=== PATIENT | male | born 1950 | race Caucasian/White ===

== ENCOUNTER 2016-11-19 23:35 | Inpatient (IN) | payer MEDICARE, MEDICAID ==
[~2016-11-19] VITALS: Ht 177.8 cm; Wt 64.1 kg
[2016-11-19] MEDS ORDERED: SODIUM CHLORIDE 0.9% 1,000 ML IV ONE (23:47)
[2016-11-19] MEDS ORDERED: methylPREDNISolone SOD SUCC 125 MG/2 ML ONE (23:55)
[2016-11-19] MEDS ORDERED: ALBUTEROL/IPRATROPIUM 2.5MG/0.5MG, 3 ML ONE (23:57)
[2016-11-20] MEDS ORDERED: ALBUTEROL/IPRATROPIUM 2.5MG/0.5MG, 3 ML NPPB ONE
[2016-11-20] MEDS ORDERED: methylPREDNISolone SOD SUCC 125 MG/2 ML IVP ONE
[2016-11-20] MEDS ORDERED: SODIUM CHLORIDE FLUSH 10ML SYR IVF ONE
[2016-11-20 00:39] LABS: ASPARTATE AMINO TRANSFERASE 19 U/L (15-37); BLOOD UREA NITROGEN 16 mg/dL (7-18)
[2016-11-20 00:45] LABS: ABG COLLECTION SITE RIGHT BRACHIAL
[2016-11-20 00:45] LABS: IS PT STATUS REG ER OR PRE ER? YES
[2016-11-20 01:29] LABS: PATH.CAST-FLAG NOT PRESENT; SPERM-FLAG NOT PRESENT; SRC-FLAG NOT PRESENT; XTAL-FLAG NOT PRESENT; YLC-FLAG NOT PRESENT
[2016-11-20] MEDS ORDERED: BISACODYL 10 MG SUPP PR PRN (01:30)
[2016-11-20] MEDS ORDERED: ACETAMINOPHEN 325 MG TABLET PO PRN (01:30)
[2016-11-20] MEDS ORDERED: ONDANSETRON ODT 4 MG PO PRN (01:30)
[2016-11-20] MEDS ORDERED: ENALAPRILAT 1.25 MG/ML, 2ML IVPush PRN (01:30)
[2016-11-20] MEDS ORDERED: POLYETHYLENE GLYCOL 17 GM PACKET PO PRN (01:30)
[2016-11-20] MEDS ORDERED: DOCUSATE 100 MG CAPSULE PO PRN (01:30)
[2016-11-20] MEDS ORDERED: TRAZODONE 50MG TABLET PO PRN (01:30)
[2016-11-20 03:46] VITALS: BP 102/65
[2016-11-20] MEDS: SODIUM CHLORIDE 0.9% 1,000 ML IV SCH ×3 (04:01→23:46)
[2016-11-20] MEDS: ENOXAPARIN 40 MG/0.4 ML SQ SCH (04:05)
[2016-11-20] MEDS: NICOTINE 14MG/24 HR PATCH.TD24 TD SCH (04:06)
[2016-11-20] MEDS ORDERED: ALBUTEROL/IPRATROPIUM 2.5MG/0.5MG, 3 ML NPPB PRN (04:30)
[2016-11-20] MEDS: ALBUTEROL/IPRATROPIUM 2.5MG/0.5MG, 3 ML NPPB SCH ×4 (07:20→20:03)
[2016-11-20 07:55] VITALS: BP 111/68
[2016-11-20] MEDS: AZITHROMYCIN 500 MG TABLET PO SCH (09:09)
[2016-11-20 12:24] VITALS: BP 109/63
[2016-11-20] MEDS: methylPREDNISolone SOD SUCC 125 MG/2 ML IVPush SCH ×2 (14:38→21:23)
[2016-11-20 19:26] VITALS: BP 115/55
[2016-11-21 01:33] VITALS: BP 103/54
[2016-11-21] MEDS: NICOTINE 14MG/24 HR PATCH.TD24 TD SCH (03:55)
[2016-11-21] MEDS: ENOXAPARIN 40 MG/0.4 ML SQ SCH (03:55)
[2016-11-21] MEDS: methylPREDNISolone SOD SUCC 125 MG/2 ML IVPush SCH (06:10)
[2016-11-21] MEDS: ALBUTEROL/IPRATROPIUM 2.5MG/0.5MG, 3 ML NPPB SCH (07:07)
[2016-11-21 07:40] VITALS: BP 92/46
[2016-11-21] MEDS: AZITHROMYCIN 500 MG TABLET PO SCH (08:07)
== END 2016-11-21 09:17 | disposition left against medical advice (07) | DRG 189 ==
LOC: ED 23:53 → EDIP 11-20 00:55 → 4NOR 11-20 03:30
PROVIDERS: ADMIT Internal Medicine; ATTEND Internal Medicine
DX: J96.01 Acute respiratory failure with hypoxia (principal); J44.1 Chronic obstructive pulmonary disease with (acute) exacerbation; D64.9 Anemia, unspecified; B86 Scabies; F17.210 Nicotine dependence, cigarettes, uncomplicated; G40.909 Epilepsy, unspecified, not intractable, without status epilepticus; G89.29 Other chronic pain; M54.9 Dorsalgia, unspecified; Z71.6 Tobacco abuse counseling; Z85.71 Personal history of Hodgkin lymphoma; Z88.8 Allergy status to other drugs, medicaments and biological substances
CPT/HCPCS: 36415; 36600; 71010; 80053; 81001; 82803; 83605; 83880; 84484; 85025; 87040; 93005; 94640; 96361; 96374; J1650; J7620; J2930; J7030; J7512

== ENCOUNTER 2019-03-08 22:31 | Emergency (ER) | payer MEDICARE, MEDICAID ==
[~2019-03-08] VITALS: Ht 177.8 cm; Wt 61.6 kg
[2019-03-08 22:35] VITALS: BP 110/60
== END 2019-03-09 00:06 | disposition home or self-care (01) ==
LOC: ED 23:00
DX: H00.015 Hordeolum externum left lower eyelid (principal); G40.909 Epilepsy, unspecified, not intractable, without status epilepticus; J44.9 Chronic obstructive pulmonary disease, unspecified; F17.200 Nicotine dependence, unspecified, uncomplicated
CPT/HCPCS: 99283

== ENCOUNTER 2019-07-18 03:14 | Emergency (ER) | payer MEDICARE, MEDICAID ==
[~2019-07-18] VITALS: Ht 177.8 cm; Wt 66.5 kg
[2019-07-18] MEDS ORDERED: ONDANSETRON ODT 4 MG ONE (03:38)
[2019-07-18] MEDS ORDERED: ACETAMINOPHEN 500 MG TABLET ONE (03:39)
[2019-07-18] MEDS ORDERED: ONDANSETRON ODT 4 MG PO ONE (04:00)
[2019-07-18] MEDS ORDERED: ACETAMINOPHEN 500 MG TABLET PO ONE (04:00)
[2019-07-18 04:32] LABS: RAPID INFLUENZA A Negative (Negative); RAPID INFLUENZA B Negative (Negative)
[2019-07-18 05:20] VITALS: BP 118/54
== END 2019-07-18 05:29 | disposition home or self-care (01) ==
LOC: ED 05:11
DX: R11.2 Nausea with vomiting, unspecified (principal); B34.9 Viral infection, unspecified; J44.9 Chronic obstructive pulmonary disease, unspecified; F17.200 Nicotine dependence, unspecified, uncomplicated
CPT/HCPCS: 71045; 87400; 99284; Q0162

== ENCOUNTER 2019-08-03 21:52 | Emergency (ER) | payer MEDICARE, MEDICAID ==
[~2019-08-03] VITALS: Ht 177.8 cm; Wt 68.1 kg
--- NOTE | 2019-08-04 | NUR ---
pt back to room from lobby
--- NOTE | 2019-08-04 00:20 | NUR ---
PT C/O WORSENING SKIN WOUNDS THAT HE HAS AD FOR 8 YEARS. PT DENIES ANY OTHER C/O AT THIS TIME. PT HAS GENERALIZED SKIN WOUNDS, NO BLEEDING. MONITORING APPLIED
[2019-08-04 00:29] LABS: BASOPHILS # (AUTO) 0.06 x10^3/uL (0-0.1); BASOPHILS % (AUTO) 1 % (0-1); EOSINOPHILS # (AUTO) 0.38 x10^3/uL (0-0.4); EOSINOPHILS % (AUTO) 4 % (1-7); LYMPHOCYTES # (AUTO) 2.12 x10^3/uL (1-3.4); LYMPHOCYTES % (AUTO) 23 % (22-44); MD NO; MEAN CORPUSCULAR HEMOGLOBIN 29.5 pg (27.5-34.5); MEAN CORPUSCULAR VOLUME 92.4 fL (81-97); MEAN PLATELET VOLUME 7.9 fL (7.4-10.4); MONOCYTES # (AUTO) 0.77 x10^3/uL (0.2-0.8); MONOCYTES % (AUTO) 8 % (2-9); NEUTROPHILS # (AUTO) 6.08 x10^3/uL (1.8-6.8); NEUTROPHILS % (AUTO) 65 % (42-75); PLATELET COUNT 300 x10^3/uL (130-400); RED BLOOD COUNT 3.94 x10^6/uL (4.38-5.82); RED CELL DISTRIBUTION WIDTH 15.3 % (9.4-14.8)
[2019-08-04 00:36] LABS: ALANINE AMINOTRANSFERASE 19 U/L (12-78); ALBUMIN 3.2 g/dL (3.4-5.0); ANION GAP 2 mmol/L (5-15); CALCIUM 8.9 mg/dL (8.5-10.1); CHLORIDE 110 mmol/L (98-107); CREATININE 1.04 mg/dL (0.7-1.3)
[2019-08-04 00:38] LABS: ALKALINE PHOSPHATASE 98 U/L (45-117); BILIRUBIN,TOTAL 0.2 mg/dL (0.2-1.0); TOTAL PROTEIN 7.3 g/dL (6.4-8.2)
[2019-08-04] MEDS ORDERED: ACETAMINOPHEN 325 MG TABLET ONE (00:57)
[2019-08-04] MEDS ORDERED: NEOSPORIN OINT. PKT 1 PACKET ONE (00:58)
[2019-08-04] MEDS ORDERED: ACETAMINOPHEN 325 MG TABLET PO ONE (01:00)
[2019-08-04] MEDS ORDERED: BACITRACIN ZINC OINT 500U/GM, 0.9 GM TP ONE (01:00)
[2019-08-04 01:27] VITALS: BP 140/73
== END 2019-08-04 02:29 | disposition home or self-care (01) ==
LOC: ED 08-04 01:29
DX: L50.9 Urticaria, unspecified (principal); L20.9 Atopic dermatitis, unspecified; J44.0 Chronic obstructive pulmonary disease with (acute) lower respiratory infection; F17.200 Nicotine dependence, unspecified, uncomplicated; G40.909 Epilepsy, unspecified, not intractable, without status epilepticus
CPT/HCPCS: 36415; 80053; 85025; 99284

== ENCOUNTER 2019-08-17 23:23 | Emergency (ER) | payer MEDICARE ==
[~2019-08-17] VITALS: Ht 177.8 cm; Wt 65.5 kg
--- NOTE | 2019-08-17 23:57 | NUR ---
FIRST CONTACT WITH PT. INITIALLY, PT RELUCTANT TO PARTICIPATE IN CARE- REFUSING TO SPEAK TO RN OR FOLLOW COMMANDS. PT MADE AWARE THAT PARTICIPATION IS REQUIRED TO PROVIDE MEDICAL ASSISTANCE. PT THEN REPORTS "MY LEGS HURT SO BAD. THEY HURT TOO BAD TO WALK ON ANY MORE". PT PRESENTS TO ED W SUPERFICIAL SORES OVER BLE IN VARIOUS STAGES OF HEALING. MARY BANDAGES REMOVED, PT STATES PLACED IN [facility] ED "ABOUT TEN DAYS AGO". DISTAL CAP REFILL <3S. TOES PINK. PT IS A POOR HISTORIAN; UNKNOWN HX OF DM OR MRSA OR RECENT ABX. BP/SPO2/ECG MONITORING IN PLACE. NSR ON MONITOR. RESPIRATIONS EVEN/UNLABORED. SPO2 >90% ON RA.
[2019-08-18 00:41] LABS: BASOPHILS # (AUTO) 0.03 x10^3/uL (0-0.1); BASOPHILS % (AUTO) 0 % (0-1); EOSINOPHILS # (AUTO) 0.39 x10^3/uL (0-0.4); EOSINOPHILS % (AUTO) 4 % (1-7); LYMPHOCYTES # (AUTO) 1.38 x10^3/uL (1-3.4); LYMPHOCYTES % (AUTO) 15 % (22-44); MD NO; MEAN CORPUSCULAR HEMOGLOBIN 29.6 pg (27.5-34.5); MEAN CORPUSCULAR HGB CONC 32.1 g/dL (33.2-36.2); MEAN CORPUSCULAR VOLUME 92.2 fL (81-97); MEAN PLATELET VOLUME 8.2 fL (7.4-10.4); MONOCYTES # (AUTO) 0.78 x10^3/uL (0.2-0.8); MONOCYTES % (AUTO) 9 % (2-9); NEUTROPHILS # (AUTO) 6.53 x10^3/uL (1.8-6.8); NEUTROPHILS % (AUTO) 72 % (42-75); PLATELET COUNT 281 x10^3/uL (130-400); RED BLOOD COUNT 3.78 x10^6/uL (4.38-5.82); RED CELL DISTRIBUTION WIDTH 14.8 % (9.4-14.8)
[2019-08-18 00:53] LABS: ALANINE AMINOTRANSFERASE 15 U/L (12-78); ALBUMIN 2.9 g/dL (3.4-5.0); ANION GAP 3 mmol/L (5-15); CALCIUM 8.3 mg/dL (8.5-10.1); CHLORIDE 110 mmol/L (98-107); CREATININE 1.31 mg/dL (0.7-1.3)
[2019-08-18 00:57] LABS: ALKALINE PHOSPHATASE 98 U/L (45-117); BILIRUBIN,TOTAL 0.2 mg/dL (0.2-1.0); TOTAL PROTEIN 7.1 g/dL (6.4-8.2); TROPONIN I < 0.015 ng/mL (0.000-0.045)
[2019-08-18 01:55] VITALS: BP 124/59
--- NOTE | 2019-08-18 02:11 | NUR ---
DC EDUCATION PROVIDED, PT DEMONSTRATES UNDERSTANDING. PT AMBULATED STEADILY TO DC WITH TECH. TAXI VOUCHER PROVIDED FOR SAFE TRANSPORT.
== END 2019-08-18 02:14 | disposition home or self-care (01) ==
LOC: ED 08-18 01:01
DX: M79.662 Pain in left lower leg (principal); M79.661 Pain in right lower leg; L98.8 Other specified disorders of the skin and subcutaneous tissue; R05 Cough; J44.9 Chronic obstructive pulmonary disease, unspecified; F17.200 Nicotine dependence, unspecified, uncomplicated; Z59.0 Homelessness
CPT/HCPCS: 36415; 71045; 80053; 83880; 84484; 85025; 93005; 99284

== ENCOUNTER 2019-08-29 17:05 | Emergency (ER) | payer MEDICARE, MEDICAID ==
[~2019-08-29] VITALS: Ht 177.8 cm; Wt 65.5 kg
[2019-08-29 17:30] VITALS: BP 109/62
[2019-08-29] MEDS ORDERED: ONDANSETRON ODT 4 MG ONE (18:52)
[2019-08-29] MEDS ORDERED: ACETAMINOPHEN 500 MG TABLET ONE (18:53)
[2019-08-29 18:59] LABS: BASOPHILS # (AUTO) 0.04 x10^3/uL (0-0.1); BASOPHILS % (AUTO) 1 % (0-1); EOSINOPHILS # (AUTO) 0.19 x10^3/uL (0-0.4); EOSINOPHILS % (AUTO) 2 % (1-7); LYMPHOCYTES # (AUTO) 1.36 x10^3/uL (1-3.4); LYMPHOCYTES % (AUTO) 17 % (22-44); MD NO; MEAN CORPUSCULAR HEMOGLOBIN 29.1 pg (27.5-34.5); MEAN CORPUSCULAR HGB CONC 32.1 g/dL (33.2-36.2); MEAN CORPUSCULAR VOLUME 90.7 fL (81-97); MEAN PLATELET VOLUME 8.2 fL (7.4-10.4); MONOCYTES # (AUTO) 0.67 x10^3/uL (0.2-0.8); MONOCYTES % (AUTO) 8 % (2-9); NEUTROPHILS # (AUTO) 5.74 x10^3/uL (1.8-6.8); NEUTROPHILS % (AUTO) 72 % (42-75); PLATELET COUNT 350 x10^3/uL (130-400); RED BLOOD COUNT 3.52 x10^6/uL (4.38-5.82); RED CELL DISTRIBUTION WIDTH 14.2 % (9.4-14.8)
[2019-08-29] MEDS ORDERED: ACETAMINOPHEN 500 MG TABLET PO ONE (19:00)
[2019-08-29] MEDS ORDERED: ONDANSETRON ODT 4 MG PO ONE (19:00)
[2019-08-29 19:04] LABS: ALANINE AMINOTRANSFERASE 29 U/L (12-78); ALBUMIN 2.4 g/dL (3.4-5.0); ANION GAP 4 mmol/L (5-15); CALCIUM 8.2 mg/dL (8.5-10.1); CHLORIDE 108 mmol/L (98-107); CREATININE 1.16 mg/dL (0.7-1.3)
[2019-08-29 19:06] LABS: ALKALINE PHOSPHATASE 64 U/L (45-117); BILIRUBIN,TOTAL 0.2 mg/dL (0.2-1.0); TOTAL PROTEIN 7.3 g/dL (6.4-8.2)
[2019-08-29 19:31] LABS: CULTURE INDICATED? NO; MICROSCOPIC AUTO
--- NOTE | 2019-08-29 20:13 | NUR ---
Patient/Caregiver given discharge instructions and they have confirmed that they understand the instructions. Patient ambulatory with steady gait.
== END 2019-08-29 20:15 | disposition home or self-care (01) ==
LOC: ED 20:09
DX: R11.2 Nausea with vomiting, unspecified (principal); R51 Headache; R10.13 Epigastric pain; R05 Cough; J44.9 Chronic obstructive pulmonary disease, unspecified; G40.909 Epilepsy, unspecified, not intractable, without status epilepticus; F17.210 Nicotine dependence, cigarettes, uncomplicated; Z88.8 Allergy status to other drugs, medicaments and biological substances
CPT/HCPCS: 36415; 80053; 80307; 81001; 83690; 85025; 99283; Q0162

== ENCOUNTER 2019-08-30 22:31 | Emergency (ER) | payer MEDICARE, MEDICAID ==
[~2019-08-30] VITALS: Ht 177.8 cm; Wt 62.6 kg
[2019-08-31] MEDS ORDERED: AZITHROMYCIN 250 MG TABLET ONE (00:24)
[2019-08-31 00:29] VITALS: BP 127/64
[2019-08-31] MEDS ORDERED: AZITHROMYCIN 500 MG TABLET PO ONE (00:30)
--- NOTE | 2019-08-31 00:30 | NUR ---
Discharge instructions given. All questions and concerns addressed. Patient ambulatory with a steady gait. Belongings with patient.
== END 2019-08-31 00:42 | disposition home or self-care (01) ==
LOC: ED 23:26
DX: J15.9 Unspecified bacterial pneumonia (principal); J44.9 Chronic obstructive pulmonary disease, unspecified; G40.909 Epilepsy, unspecified, not intractable, without status epilepticus; F17.210 Nicotine dependence, cigarettes, uncomplicated
CPT/HCPCS: 71045; 99283

== ENCOUNTER 2019-10-06 21:36 | Emergency (ER) | payer MEDICARE, MEDICAID ==
[~2019-10-06] VITALS: Ht 177.8 cm; Wt 65.8 kg
[2019-10-06] MEDS ORDERED: METHOCARBAMOL 750 MG TABLET ONE (23:17)
[2019-10-06] MEDS ORDERED: IBUPROFEN 800 MG TABLET ONE (23:17)
[2019-10-06 23:22] VITALS: BP 115/60
[2019-10-06] MEDS ORDERED: METHOCARBAMOL 750 MG TABLET PO ONE (23:30)
[2019-10-06] MEDS ORDERED: IBUPROFEN 800 MG TABLET PO ONE (23:30)
== END 2019-10-07 00:18 | disposition home or self-care (01) ==
LOC: ED 22:36
DX: S29.012A Strain of muscle and tendon of back wall of thorax, initial encounter (principal); J44.9 Chronic obstructive pulmonary disease, unspecified; X58.XXXA Exposure to other specified factors, initial encounter; Y93.89 Activity, other specified; Y92.89 Other specified places as the place of occurrence of the external cause; Y99.8 Other external cause status
CPT/HCPCS: 93005; 99283

== ENCOUNTER 2019-10-13 16:23 | Emergency (ER) | payer MEDICARE, MEDICAID ==
[~2019-10-13] VITALS: Ht 177.8 cm; Wt 64.5 kg
--- NOTE | 2019-10-13 16:52 | NUR ---
PT TO RM AT THIS TIME. PT WITH C/O DIFFICULTY BREATHING STARTING THIS AM. PT WITH NON PRODUCTIVE COUGH BEGINNNING THIS AM WELL. AFEBRIL, DENIES CP AT THIS TIME. PT TO BP, CARD MONITOR, CONT PULSE OX.
[2019-10-13 17:27] VITALS: BP 102/61
[2019-10-13 17:28] LABS: ALBUMIN 3.6 g/dL (3.4-5.0); ANION GAP 4 mmol/L (5-15); CALCIUM 9.3 mg/dL (8.5-10.1); CHLORIDE 106 mmol/L (98-107); CREATININE 1.39 mg/dL (0.7-1.3)
[2019-10-13 17:31] LABS: TROPONIN I < 0.015 ng/mL (0.000-0.045)
--- NOTE | 2019-10-13 17:40 | NUR ---
PT MEDICATED PER MAR, VSS, RR NOW 36, APPEARS LESS LABORED
[2019-10-13 18:28] LABS: BASOPHILS # (AUTO) 0.02 x10^3/uL (0-0.1); BASOPHILS % (AUTO) 0 % (0-1); EOSINOPHILS # (AUTO) 0.24 x10^3/uL (0-0.4); EOSINOPHILS % (AUTO) 3 % (1-7); LYMPHOCYTES # (AUTO) 1.18 x10^3/uL (1-3.4); LYMPHOCYTES % (AUTO) 16 % (22-44); MD SCAN; MEAN CORPUSCULAR HEMOGLOBIN 29.2 pg (27.5-34.5); MEAN CORPUSCULAR HGB CONC 32.5 g/dL (33.2-36.2); MEAN CORPUSCULAR VOLUME 89.7 fL (81-97); MEAN PLATELET VOLUME 8.8 fL (7.4-10.4); MONOCYTES # (AUTO) 0.31 x10^3/uL (0.2-0.8); MONOCYTES % (AUTO) 4 % (2-9); NEUTROPHILS # (AUTO) 5.67 x10^3/uL (1.8-6.8); NEUTROPHILS % (AUTO) 76 % (42-75); PLATELET COUNT 237 x10^3/uL (130-400); RED BLOOD COUNT 4.86 x10^6/uL (4.38-5.82); RED CELL DISTRIBUTION WIDTH 16.4 % (9.4-14.8)
== END 2019-10-13 18:42 | disposition home or self-care (01) ==
LOC: ED 17:03
DX: J43.9 Emphysema, unspecified (principal); G40.909 Epilepsy, unspecified, not intractable, without status epilepticus; F17.200 Nicotine dependence, unspecified, uncomplicated
CPT/HCPCS: 36415; 71045; 80048; 82040; 84484; 85025; 93005; 99285; J7512

== ENCOUNTER 2020-01-20 09:02 | Emergency (ER) | payer MEDICARE, MEDICAID ==
[~2020-01-20] VITALS: Ht 175.3 cm; Wt 52.1 kg
--- NOTE | 2020-01-20 09:32 | NUR ---
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
--- NOTE | 2020-01-20 10:04 | NUR ---
PT PLACED ON ALL ROOM MONITORING. PT R/O 07/31 IHSAN CP AT THIS TIME, NO SOB. PT IN NAD, CALL LIGHT WITHIN REACH, WARM BLANKET PROVIDED.
--- NOTE | 2020-01-20 10:25 | NUR ---
PT AMBULATORY TO RADIOLOGY.
[2020-01-20 10:28] LABS: BASOPHILS # (AUTO) 0.02 x10^3/uL (0-0.1); BASOPHILS % (AUTO) 0 % (0-1); EOSINOPHILS # (AUTO) 0.18 x10^3/uL (0-0.4); EOSINOPHILS % (AUTO) 4 % (1-7); LYMPHOCYTES # (AUTO) 1.03 x10^3/uL (1-3.4); LYMPHOCYTES % (AUTO) 21 % (22-44); MD NO; MEAN CORPUSCULAR HEMOGLOBIN 29.8 pg (27.5-34.5); MEAN CORPUSCULAR VOLUME 90.3 fL (81-97); MEAN PLATELET VOLUME 9.2 fL (7.4-10.4); MONOCYTES # (AUTO) 0.57 x10^3/uL (0.2-0.8); MONOCYTES % (AUTO) 12 % (2-9); NEUTROPHILS # (AUTO) 3.14 x10^3/uL (1.8-6.8); NEUTROPHILS % (AUTO) 64 % (42-75); PLATELET COUNT 209 x10^3/uL (130-400); RED BLOOD COUNT 4.33 x10^6/uL (4.38-5.82); RED CELL DISTRIBUTION WIDTH 14.3 % (9.4-14.8)
[2020-01-20 10:38] LABS: ALANINE AMINOTRANSFERASE 21 U/L (12-78); ALBUMIN 3.2 g/dL (3.4-5.0); ANION GAP 2 mmol/L (5-15); CALCIUM 8.4 mg/dL (8.5-10.1); CHLORIDE 105 mmol/L (98-107)
[2020-01-20 10:43] LABS: ALKALINE PHOSPHATASE 76 U/L (45-117); BILIRUBIN,TOTAL 0.2 mg/dL (0.2-1.0); TOTAL PROTEIN 6.8 g/dL (6.4-8.2); TROPONIN I < 0.015 ng/mL (0.000-0.045)
[2020-01-20 11:04] VITALS: BP 92/52
--- NOTE | 2020-01-20 11:05 | NUR ---
ALL RESULTS BACK,PT FOR RECHECK. VSS/UPDATED IN COMPUTER.
[2020-01-20] MEDS ORDERED: MAGNESIUM CITRATE 300ML ORAL SOL PO ONE (11:30)
[2020-01-20] MEDS ORDERED: MAGNESIUM CITRATE 300ML ORAL SOL ONE (11:37)
[2020-01-20] MEDS ORDERED: PERMETHRIN CRM 5%, 60GM ONE (11:40)
--- NOTE | 2020-01-20 11:51 | NUR ---
PT GIVEN MAG CITRATE AND ELIMITE TO GO HOME WITH PER DR PEOPLES.
== END 2020-01-20 11:53 | disposition home or self-care (01) ==
LOC: ED 09:59
DX: R07.89 Other chest pain (principal); R10.84 Generalized abdominal pain; K59.00 Constipation, unspecified; R00.0 Tachycardia, unspecified; J44.9 Chronic obstructive pulmonary disease, unspecified; F17.290 Nicotine dependence, other tobacco product, uncomplicated
CPT/HCPCS: 36415; 74022; 80053; 84484; 85025; 93005; 99285

== ENCOUNTER 2020-08-17 21:43 | Emergency (ER) | payer MEDICARE, MEDICAID ==
[~2020-08-17] VITALS: Ht 177.8 cm; Wt 69.0 kg
[2020-08-17 23:03] LABS: BASOPHILS % (AUTO) 1 % (0-1); EOSINOPHILS % (AUTO) 3 % (1-7); LYMPHOCYTES % (AUTO) 21 % (22-44); MEAN CORPUSCULAR HEMOGLOBIN 30.2 pg (27.5-34.5); MEAN CORPUSCULAR HGB CONC 33.4 g/dL (33.2-36.2); MEAN PLATELET VOLUME 9.1 fL (7.4-10.4); MONOCYTES % (AUTO) 9 % (2-9); NEUTROPHILS % (AUTO) 67 % (42-75); PLATELET COUNT 190 x10^3/uL (130-400); RED BLOOD COUNT 3.92 x10^6/uL (4.38-5.82); RED CELL DISTRIBUTION WIDTH 16.2 % (9.4-14.8)
[2020-08-17 23:06] LABS: ALBUMIN 3.5 g/dL (3.4-5.0); ANION GAP 3 mmol/L (5-15); CALCIUM 8.6 mg/dL (8.5-10.1); CHLORIDE 107 mmol/L (98-107); CREATININE 1.09 mg/dL (0.7-1.3)
[2020-08-17 23:08] LABS: MD NO
[2020-08-17 23:10] LABS: TROPONIN I < 0.015 ng/mL (0.000-0.045)
[2020-08-17 23:48] VITALS: BP 128/76
== END 2020-08-17 23:50 | disposition home or self-care (01) ==
LOC: ED 23:02
DX: R06.00 Dyspnea, unspecified (principal); R11.2 Nausea with vomiting, unspecified; M54.9 Dorsalgia, unspecified; R07.9 Chest pain, unspecified; Z72.9 Problem related to lifestyle, unspecified; R94.31 Abnormal electrocardiogram [ECG] [EKG]; J44.9 Chronic obstructive pulmonary disease, unspecified; G40.909 Epilepsy, unspecified, not intractable, without status epilepticus; Z59.0 Homelessness
CPT/HCPCS: 36415; 71045; 80048; 82040; 84484; 85025; 93005; 99285